=== PATIENT | female | born 1985 | race American Indian/Alaskan Native ===

== ENCOUNTER 2021-06-10 10:23 | Outpatient (CLI) | payer BC ==
--- NOTE | 2021-06-10 14:47 | Ultrasound Report ---
ULTRASOUND PELVIS INDICATION / CLINICAL INFORMATION: INFERTILITY. TECHNIQUE: Transabdominal and Transvaginal. Duplex Color Doppler used: Yes. COMPARISON: None available FINDINGS: UTERUS: - Appearance: Retroflexed. - Size (cm): 7.0 x 4.9 x 4.7 cm. - Endometrial Complex (if present): No significant abnormality.. Thickness in cm (if measured) = 1.4 cm. - Mass or cyst: Multiple simple appearing nabothian cysts within the cervix. - Additional findings: None. RIGHT ADNEXA: The right ovary measures 3.1 x 1.4 x 2.1 cm. Follicular changes noted, the largest kristan uring 1.4 cm. Normal color Doppler blood flow. LEFT ADNEXA: The left ovary measures 3.8 x 2.0 x 2.4 cm. Follicular changes noted, the largest measur ing 1.3 cm. Normal color Doppler blood flow. URINARY BLADDER: No significant abnormality. FREE FLUID: None. ADDITIONAL FINDINGS: None. IMPRESSION: 1. No significant sonographic abnormality. 2. Multiple follicles noted within bilateral ovaries. Scribed by: Lissy Helms RDMS, RVT Scribed: 06/10/2021 12:42 PM I have reviewed the images, agree with this report, and edited this report as needed. Signer Name: Jhonathan Styles MD Signed: 06/10/2021 2:43 PM Workstation Name: [id number]
== END 2021-06-10 10:24 | disposition home or self-care (01) ==
LOC: US 10:23
PROVIDERS: ATTEND Obstetrics & Gynecology
DX: N83.292 Other ovarian cyst, left side (principal); N83.291 Other ovarian cyst, right side; N97.0 Female infertility associated with anovulation
CPT/HCPCS: 76830; 76856

== ENCOUNTER 2021-11-01 19:51 | Emergency (ER) | payer BC ==
[2021-11-01 20:53] VITALS: BP 121/74
[2021-11-02 12:52] LABS: Bilirubin,Urine NEG (Negative); Blood,Urine NEG (Negative); Color,Urine Yellow (Yellow); Protein,Urine <15 mg/dL mg/dL (Negative); RBC,Urine < 1.0 /HPF (0.0-6.0); Urobilinogen,Urine < 2.0 mg/dL (<2.0)
[2021-11-02 13:21] LABS: Alanine Aminotransferase 12 units/L (7-56); Albumin 4.1 g/dL (3.9-5); Blood Urea Nitrogen 11 mg/dL (7-17); Calcium 9.3 mg/dL (8.4-10.2); Hemolysis Index 5
[2021-11-02 13:23] LABS: BUN/Creatinine Ratio 16
[2021-11-02 14:50] LABS: Basophils % (Auto) 0.5 % (0.0-1.8); Eosinophils # (Auto) 0.1 K/mm3 (0.0-0.4); Eosinophils % (Auto) 1.3 % (0.0-4.3); Hemoglobin 10.8 gm/dl (10.1-14.3); Lymphocytes # (Auto) 2.5 K/mm3 (1.2-5.4); Lymphocytes % (Auto) 38.7 % (13.4-35.0); Mean Corpuscular HGB Conc 34 % (30-34); Mean Corpuscular Volume 82 fl (79-97); Monocytes # (Auto) 0.4 K/mm3 (0.0-0.8); Monocytes % (Auto) 5.6 % (0.0-7.3); Platelet Count 318 K/mm3 (140-440); Red Blood Count 3.92 M/mm3 (3.65-5.03); Red Cell Distribution Width 15.6 % (13.2-15.2)
--- NOTE | 2021-11-02 14:50 | Emergency Department Report ---
ED Abdominal Pain HPI - General Chief Complaint: Urogenital-Female Stated Complaint: PELVIC PAIN Source: patient Mode of arrival: Ambulatory Limitations: No Limitations - History of Present Illness Initial Comments: 35-year-old female presents to the ED complaining of abdominal pain. Patient states that she recently was on her menstrual cycle 3 days ago and since she has been having pelvic pain. 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 Patient states that she was recently doing tik tok videos and could have possibly pulled a muscle. Patient is alert and oriented x3. Patient is ambulatory. She denies any nausea vomiting or diarrhea. Patient states last BM was on yesterday. She states last cycle was 3 days ago. No acute distress noted. no ill appearance noted MD Complaint: abdominal pain Onset/Timin -: This morning Location: diffuse Radiation: none Migration to: no migration Severity: mild Severity scale (0 -10): 3 Quality: aching Consistency: constant Improves With: nothing Worsens With: nothing Associated Symptoms: denies other symptoms - Related Data LMP (females 10-50): this week Previous Rx's Medication Instructions Recorded Last Taken Type Cyclobenzaprine [Flexeril] 10 mg PO TID PRN 15 Days #30 tab 11/02/21 Unknown Rx Hyoscyamine Subl [Levsin Sl 0.125 0.125 mg SL Q4HR PRN 7 Days #20 11/02/21 Unknown Rx TAB] tablet Ibuprofen [Motrin] 800 mg PO Q8HR PRN 15 Days #30 11/02/21 Unknown Rx tablet Allergies Allergy/AdvReac Type Severity Reaction Status Date / Time Sulfa (Sulfonamide Allergy Hives Verified 11/01/21 20:52 Antibiotics) ED Review of Systems ROS: Stated complaint: PELVIC PAIN Other details as noted in HPI Constitutional: denies: chills, fever Eyes: denies: eye pain, eye discharge, vision change ENT: denies: ear pain, throat pain Respiratory: denies: cough, shortness of breath, wheezing Cardiovascular: denies: chest pain, palpitations Endocrine: no symptoms reported Gastrointestinal: abdominal pain, nausea. denies: diarrhea Genitourinary: denies: urgency, dysuria, discharge Musculoskeletal: denies: back pain, joint swelling, arthralgia Skin: denies: rash, lesions Neurological: denies: headache, weakness, paresthesias Psychiatric: denies: anxiety, depression Hematological/Lymphatic: denies: easy bleeding, easy bruising ED Past Medical Hx - Past Medical History Previous Medical History?: No - Surgical History Past Surgical History?: No - Medications Home Medications: Home Medications Medication Instructions Recorded Confirmed Last Taken Type Cyclobenzaprine [Flexeril] 10 mg PO TID PRN 15 Days #30 tab 11/02/21 Unknown Rx Hyoscyamine Subl [Levsin Sl 0.125 0.125 mg SL Q4HR PRN 7 Days #20 11/02/21 Unknown Rx TAB] tablet Ibuprofen [Motrin] 800 mg PO Q8HR PRN 15 Days #30 11/02/21 Unknown Rx tablet ED Physical Exam - General Limitations: No Limitations General appearance: alert, in no apparent distress - Head Head exam: Present: atraumatic, normocephalic - Eye Eye exam: Present: normal appearance - ENT ENT exam: Present: mucous membranes moist - Neck Neck exam: Present: normal inspection - Respiratory Respiratory exam: Present: normal lung sounds bilaterally. Absent: respiratory distress - Cardiovascular Cardiovascular Exam: Present: regular rate, normal rhythm. Absent: systolic murmur, diastolic murmur, rubs, gallop - GI/Abdominal GI/Abdominal exam: Present: soft, normal bowel sounds - Extremities Exam Extremities exam: Present: normal inspection - Back Exam Back exam: Present: normal inspection - Neurological Exam Neurological exam: Present: alert, oriented X3 - Psychiatric Psychiatric exam: Present: normal affect, normal mood - Skin Skin exam: Present: warm, dry, intact, normal color. Absent: rash ED Course Vital Signs 11/01/21 20:46 Temperature 98.6 F Pulse Rate 91 H Respiratory 14 Rate Blood Pressure 121/74 [Right] O2 Sat by Pulse 100 Oximetry ED Medical Decision Making - Lab Data Result diagrams: 11/02/21 14:36 11/02/21 12:43 - Medical Decision Making 35-year-old female presents to the ED complaining of abdominal pain. Patient states that she recently was on her menstrual cycle 3 days ago and since she has been having pelvic pain. 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 Patient states that she was recently doing tik tok videos and could have possibly pulled a muscle. Patient is alert and oriented x3. Patient is ambulatory. She denies any nausea vomiting or diarrhea. P atient states last BM was on yesterday. She states last cycle was 3 days ago. No acute distress noted. no ill appearance noted. Rechecked the patient is resting quietly quietly and comfortable and feeling better. I discussed the results of diagnostic study, my clinical impression and the plan for further treatment with the patient. Patient agrees with plan and discharge at this present time. All question addressed. I have given the patient instruction regarding a diagnosis ,expectation ,follow- up and return precaution. I explained to the patient that emergent condition may arise and to return to the ED for new worsen and any new persisting condition. I have explained the importance of following up with the primary care physician or referral physician listed below has instructed. The patient verbalized understanding of discharge instruction. Critical care attestation.: If time is entered above; I have spent that time in minutes in the direct care of this critically ill patient, excluding procedure time. ED Disposition Clinical Impression: Abdominal pain Qualifiers: Abdominal location: generalized Qualified Code(s): R10.84 - Generalized abdominal pain Disposition: 01 HOME / SELF CARE / HOMELESS Is pt being admited?: No Does the pt Need Aspirin: No Condition: Stable Instructions: Abdominal Pain, Adult, Pain Without a Known Cause Additional Instructions: Take medication as prescribed Return to the ED for any worsening symptom Prescriptions: Cyclobenzaprine [Flexeril] 10 mg PO TID PRN 15 Days #30 tab PRN Reason: Muscle Spasm Hyoscyamine Subl [Levsin Sl 0.125 TAB] 0.125 mg SL Q4HR PRN 7 Days #20 tablet PRN Reason: Spasms Ibuprofen [Motrin] 800 mg PO Q8HR PRN 15 Days #30 tablet PRN Reason: Pain, Mild (1-3) Referrals: PRIMARY CARE [Primary Care Provider] - 3-5 Days [facility] [Provider Group] - 3-5 Days Forms: Work/School Release Form(ED) Time of Disposition: 16:15
--- NOTE | 2021-11-02 15:53 | Cat Scan Report ---
CT abdomen pelvis w con INDICATION / CLINICAL INFORMATION: 35-year-old female with pelvic pain. TECHNIQUE: Axial CT imaging of abdomen and pelvis was obtained with IV contrast. Coronal and sagittal reformatte d imaging obtained and reviewed. All CT scans at this location are performed using CT dose reduction for ALARA by means of automated exposure control. COMPARISON: None available. FINDINGS: CT abdomen with IV contrast demonstrates grossly normal appearance of the liver, spleen, pancreas, ki dneys, and adrenal glands. Gallbladder is present and unremarkable. Abdominal aorta is normal. CT pelvis with contrast demonstrates mild enlargement of the uterus. No adnexal mass or acute inflamm atory change. A normal appendix is present in the right lower quadrant. GI tract is grossly unremarka ble. Visualized lung bases are clear. No acute osseous abnormality noted. IMPRESSION: 1. No acute finding within the abdomen or pelvis. 2. Mild enlargement of the uterus, incidentally noted. Signer Name: Mihaela Salcedo MD Signed: 11/02/2021 3:49 PM Workstation Name: [id number]
== END 2021-11-02 16:51 | disposition home or self-care (01) ==
LOC: ED 19:51
DX: R10.9 Unspecified abdominal pain (principal); Z88.2 Allergy status to sulfonamides
CPT/HCPCS: 36415; 74177; 80053; 81001; 84702; 85025; 99284; Q9967; 74160

== ENCOUNTER 2021-11-02 07:10 | Emergency (ER) | payer BC ==
[2021-11-02 07:17] VITALS: BP 128/75
== END 2021-11-02 15:21 | disposition left against medical advice (07) ==
LOC: ED 07:10
DX: R10.2 Pelvic and perineal pain (principal); Z53.21 Procedure and treatment not carried out due to patient leaving prior to being seen by health care provider